=== PATIENT | female | born 1960 | race Two or more races ===

== ENCOUNTER 2021-10-28 09:14 | Day surgery (SDC) | payer OTHER | END 2021-10-28 13:50 | disposition home or self-care (01) | LOC: AMB-ENDOS 09:14 | PROVIDERS: ATTEND Colon & Rectal Surgery | DX: D12.0 Benign neoplasm of cecum (principal); D12.3 Benign neoplasm of transverse colon; K64.8 Other hemorrhoids; Z20.822 Contact with and (suspected) exposure to COVID-19 ==

== ENCOUNTER 2022-02-10 06:30 | Day surgery (SDC) | payer OTHER | END 2022-02-10 14:08 | disposition home or self-care (01) | LOC: AMB-ENDOS 06:30 | PROVIDERS: ATTEND Colon & Rectal Surgery | DX: C20 Malignant neoplasm of rectum (principal); D12.8 Benign neoplasm of rectum; Z20.822 Contact with and (suspected) exposure to COVID-19; K64.4 Residual hemorrhoidal skin tags; K62.6 Ulcer of anus and rectum ==

== ENCOUNTER 2022-06-16 12:00 | Inpatient (IN) | payer OTHER ==
[~2022-06-16] VITALS: Ht 162.6 cm; Wt 63.5 kg
[2022-06-16] MEDS ORDERED: BENEFIBER1 EACH PO (14:07)
== END 2022-06-28 22:30 | disposition home or self-care (01) | DRG 331 ==
LOC: SURH 06-18 07:00 → O/R 06-25 06:00 → SURH 06-25 12:00 → SURG 06-25 17:06 → SURH 06-25 19:57
PROVIDERS: ADMIT Colon & Rectal Surgery; ATTEND Colon & Rectal Surgery
PROC: 0DTP4ZZ Resection of Rectum, Percutaneous Endoscopic Approach (ICD-10-PCS; 2022-06-25)
PROC: 0DTQ4ZZ Resection of Anus, Percutaneous Endoscopic Approach (ICD-10-PCS; 2022-06-25)
PROC: 07BC4ZZ Excision of Pelvis Lymphatic, Percutaneous Endoscopic Approach (ICD-10-PCS; 2022-06-25)
PROC: 0D1M4Z4 Bypass Descending Colon to Cutaneous, Percutaneous Endoscopic Approach (ICD-10-PCS; 2022-06-25)
PROC: 0DTN4ZZ Resection of Sigmoid Colon, Percutaneous Endoscopic Approach (ICD-10-PCS; principal; 2022-06-25 13:30)
DX: C20 Malignant neoplasm of rectum (principal); K63.5 Polyp of colon; R59.0 Localized enlarged lymph nodes; K64.8 Other hemorrhoids; Z20.822 Contact with and (suspected) exposure to COVID-19; Z93.2 Ileostomy status

== ENCOUNTER → 2022-06-23 11:43 | Outpatient (CLI) | payer OTHER ==
[~2022-06-23 11:43] MED LIST: BENEFIBER1 EACH PO
== END | disposition home or self-care (01) ==
LOC: LAB 11:43
PROVIDERS: ATTEND Colon & Rectal Surgery
DX: Z11.59 Encounter for screening for other viral diseases (principal); Z20.828 Contact with and (suspected) exposure to other viral communicable diseases; Z20.822 Contact with and (suspected) exposure to COVID-19